=== PATIENT | male | born 1965 | race Caucasian/White ===

== ENCOUNTER 2022-02-13 06:44 | Observation (INO) | payer BC, OTHER ==
[2022-02-13] MEDS ORDERED: ASPIRIN 81 MG PO STA (07:15)
[2022-02-13] MEDS ORDERED: HYDROmorphone 1 MG/ML 1 ML SYRINGE IVP STA ×2 (07:16→08:53)
--- NOTE | 2022-02-13 07:22 | ED ---
General Adult HPI - General Chief complaint: Extremity Injury, Lower Stated complaint: Wound,Chest Pain Time Seen by Provider: 02/13/22 06:55 Source: patient, family, RN notes reviewed Mode of arrival: ambulatory Limitations: no limitations - History of Present Illness Initial comments: Patient is a pleasant 56-year-old male presenting to the emergency department with concerns for right foot pain. Patient states he has developed a wound over the past few months. Patient is currently on antibiotics. Patient states pain is reliable list. Patient is having difficult time getting comfortable and has slept only around an hour last night. Patient has vague complaints around chest heaviness and maybe some shortness of breath. Patient has difficulty describing her providing much more information on this. Patient has seen previous wound doctor's and has been told that this is a vascular wound. Patient has been to [facility] and other places. - Related Data Home Medications Medication Instructions Recorded Confirmed Dextroamphetamine/Amphetamine 20 mg PO BID 03/28/15 04/14/15 [Adderall] Gabapentin [Neurontin] 300 mg PO BID 03/28/15 04/09/15 Ibuprofen [Motrin] 200 - 800 mg PO DAILY PRN 03/28/15 04/09/15 Zolpidem [Ambien] 5 mg PO HS PRN 03/28/15 04/09/15 HYDROcodone/APAP 5-325MG [[place] 5] 1 each PO Q6HR PRN 04/09/15 04/14/15 Allergies Allergy/AdvReac Type Severity Reaction Status Date / Time No Known Allergies Allergy Verified 02/13/22 06:50 Review of Systems ROS Statement: Those systems with pertinent positive or pertinent negative responses have been documented in the HPI. ROS Other: All systems not noted in ROS Statement are negative. Constitutional: Denies: fever Eyes: Denies: eye pain ENT: Denies: ear pain Respiratory: Reports: as per HPI, dyspnea Cardiovascular: Reports: as per HPI, chest pain Endocrine: Denies: fatigue Gastrointestinal: Denies: abdominal pain Genitourinary: Denies: dysuria Musculoskeletal: Denies: back pain Skin: Reports: as per HPI Neurological: Denies: weakness Past Medical History Additional Past Medical History / Comment(s): OPEN WOUND RT [facility] RT LEG History of Any Multi-Drug Resistant Organisms: None Reported Past Surgical History: Orthopedic Surgery Additional Past Surgical History / Comment(s): ORIF WRIST-LATER REMOVED,VEIN STRIPPING RT LEG Past Anesthesia/Blood Transfusion Reactions: No Reported Reaction Past Psychological History: No Psychological Hx Reported Smoking Status: Vaper Past Alcohol Use History: Occasional Past Drug Use History: Marijuana - Past Family History Mother Family Medical History: Cancer Father Family Medical History: No Reported History General Exam Limitations: no limitations General appearance: alert, anxious Head exam: Present: normocephalic Eye exam: Present: normal appearance Neck exam: Present: normal inspection Respiratory exam: Present: normal lung sounds bilaterally. Absent: chest wall tenderness Cardiovascular Exam: Present: regular rate, normal rhythm Expanded Peripheral pulses: 2+: Radial (R), Radial (L), Dorsalis Pedis (R), Dorsalis Pedis (L) GI/Abdominal exam: Present: soft. Absent: tenderness Extremities exam: Present: normal inspection Neurological exam: Present: alert Psychiatric exam: Present: anxious Skin exam: Present: other (Stage II wound approximately 3 x 1.5 cm right lateral proximal foot.) Course Vital Signs 02/13/22 02/13/22 06:47 07:54 Temperature 97.5 F L Pulse Rate 80 78 Respiratory 22 16 Rate Blood Pressure 170/127 149/82 O2 Sat by Pulse 98 99 Oximetry EKG Findings - EKG Comments: EKG Findings:: Sinus rhythm with rate of 83. AK 167. QRS 91. QT 345. QTC 34. Left axis. Normal QRS. No acute ST change. Medical Decision Making - Medical Decision Making Patient reevaluated. Patient and family updated. Case discussed with Dr. Sin, who will admit covering Dr. Sabillon. He would like to see the wound himself prior to considering further consults. - Lab Data Result diagrams: 02/13/22 07:25 02/13/22 07:25 Lab Results 02/13/22 02/13/22 02/13/22 Range/Units 07:25 07:25 07:25 WBC 7.3 (3.8-10.6) k/uL RBC 4.53 (4.30-5.90) m/uL Hgb 13.0 (13.0-17.5) gm/dL Hct 40.1 (39.0-53.0) % MCV 88.5 (80.0-100.0) fL MCH 28.8 (25.0-35.0) pg MCHC 32.6 (31.0-37.0) g/dL RDW 11.9 (11.5-15.5) % Plt Count 291 (150-450) k/uL MPV 8.7 Neutrophils % 72 % Lymphocytes % 18 % Monocytes % 5 % Eosinophils % 3 % Basophils % 1 % Neutrophils # 5.3 (1.3-7.7) k/uL Lymphocytes # 1.3 (1.0-4.8) k/uL Monocytes # 0.4 (0-1.0) k/uL Eosinophils # 0.2 (0-0.7) k/uL Basophils # 0.0 (0-0.2) k/uL PT 9.7 (9.0-12.0) sec INR 0.9 (<1.2) APTT 25.3 (22.0-30.0) sec D-Dimer 0.19 (<0.60) mg/L FEU Sodium 136 L (137-145) mmol/L Potassium 4.8 (3.5-5.1) mmol/L Chloride 103 (98-107) mmol/L Carbon Dioxide 22 (22-30) mmol/L Anion Gap 11 mmol/L BUN 23 H (9-20) mg/dL Creatinine 0.95 (0.66-1.25) mg/dL Est GFR (CKD-EPI)AfAm >90 (>60 ml/min/1.73 sqM) Est GFR (CKD-EPI)NonAf 90 (>60 ml/min/1.73 sqM) Glucose 98 (74-99) mg/dL Calcium 9.3 (8.4-10.2) mg/dL Magnesium 1.8 (1.6-2.3) mg/dL Total Bilirubin 0.3 (0.2-1.3) mg/dL AST 24 (17-59) U/L ALT 24 (4-49) U/L Alkaline Phosphatase 66 (38-126) U/L Troponin I (0.000-0.034) ng/mL Total Protein 7.0 (6.3-8.2) g/dL Albumin 4.4 (3.5-5.0) g/dL 02/13/22 Range/Units 07:25 WBC (3.8-10.6) k/uL RBC (4.30-5.90) m/uL Hgb (13.0-17.5) gm/dL Hct (39.0-53.0) % MCV (80.0-100.0) fL MCH (25.0-35.0) pg MCHC (31.0-37.0) g/dL RDW (11.5-15.5) % Plt Count (150-450) k/uL MPV Neutrophils % % Lymphocytes % % Monocytes % % Eosinophils % % Basophils % % Neutrophils # (1.3-7.7) k/uL Lymphocytes # (1.0-4.8) k/uL Monocytes # (0-1.0) k/uL Eosinophils # (0-0.7) k/uL Basophils # (0-0.2) k/uL PT (9.0-12.0) sec INR (<1.2) APTT (22.0-30.0) sec D-Dimer (<0.60) mg/L FEU Sodium (137-145) mmol/L Potassium (3.5-5.1) mmol/L Chloride (98-107) mmol/L Carbon Dioxide (22-30) mmol/L Anion Gap mmol/L BUN (9-20) mg/dL Creatinine (0.66-1.25) mg/dL Est GFR (CKD-EPI)AfAm (>60 ml/min/1.73 sqM) Est GFR (CKD-EPI)NonAf (>60 ml/min/1.73 sqM) Glucose (74-99) mg/dL Calcium (8.4-10.2) mg/dL Magnesium (1.6-2.3) mg/dL Total Bilirubin (0.2-1.3) mg/dL AST (17-59) U/L ALT (4-49) U/L Alkaline Phosphatase (38-126) U/L Troponin I <0.012 (0.000-0.034) ng/mL Total Protein (6.3-8.2) g/dL Albumin (3.5-5.0) g/dL - Radiology Data Radiology results: image reviewed (Chest x-ray shows no acute process. Right foot x-ray shows no evidence of osteomyelitis) Disposition Clinical Impression: Chest pain, Foot ulcer Disposition: ADMITTED IP TO THIS HOSP Is patient prescribed a controlled substance at d/c from ED?: No Referrals: Sheila Crawley DO [Primary Care Provider] - 1-2 days Time of Disposition: 08:57
[2022-02-13] MEDS ORDERED: NITROGLYCERIN OINT 1 INCH/GM PACKET TOPICAL STA (07:24)
[2022-02-13 08:03] LABS: INR 0.9 (<1.2); Partial Thromboplastin Time 25.3 sec (22.0-30.0); Prothrombin Time 9.7 sec (9.0-12.0)
--- NOTE | 2022-02-13 08:09 | XR ---
EXAMINATION TYPE: XR chest 2V DATE OF EXAM: 02/13/2022 7:53 AM COMPARISON: None TECHNIQUE: XR chest 2V Frontal and lateral views of the chest. CLINICAL INDICATION:Male, 56 years old with history of Chest Pain; FINDINGS: Lungs/Pleura: There is no evidence of pleural effusion, focal consolidation, or pneumothorax. Pulmonary vascularity: Unremarkable. Heart/mediastinum: Cardiomediastinal silhouette is enlarged and stable. Musculoskeletal: No acute osseous pathology. IMPRESSION: No acute cardiopulmonary disease/process.
--- NOTE | 2022-02-13 08:09 | XR ---
EXAMINATION TYPE: XR foot complete RT DATE OF EXAM: 02/13/2022 7:53 AM INDICATION: Patient age:Male; 56 years old; Reason for study: wound; [facility]. COMPARISON: None TECHNIQUE: The right foot was examined in the AP, oblique, and lateral projections. FINDINGS: No evidence of any acute osseous pathology. No evidence of soft tissue swelling. Joints are preserve d. No evidence of osseous erosion to suggest osteomyelitis. IMPRESSION: 1. No evidence of acute fracture. 2. No evidence for osteomyelitis.
[2022-02-13 08:12] LABS: ALT 24 U/L (4-49); AST 24 U/L (17-59); African American GFR (CKD) >90 (>60 ml/min/1.73 sqM); Albumin 4.4 g/dL (3.5-5.0); Alkaline Phosphatase 66 U/L (38-126); Anion Gap 11 mmol/L; Blood Urea Nitrogen 23 mg/dL (9-20); Calcium 9.3 mg/dL (8.4-10.2); Carbon Dioxide 22 mmol/L (22-30); Chloride 103 mmol/L (98-107); Glucose 98 mg/dL (74-99); Magnesium 1.8 mg/dL (1.6-2.3); Non-African American GFR(CKD) 90 (>60 ml/min/1.73 sqM); Potassium 4.8 mmol/L (3.5-5.1); Sodium 136 mmol/L (137-145); Total Bilirubin 0.3 mg/dL (0.2-1.3)
[2022-02-13 08:27] LABS: Basophils % (A) 1 %; Eosinophils # (A) 0.2 k/uL (0-0.7); Eosinophils % (A) 3 %; HCT 40.1 % (39.0-53.0); Lymphocytes # (A) 1.3 k/uL (1.0-4.8); Lymphocytes % (A) 18 %; MCH 28.8 pg (25.0-35.0); MCHC 32.6 g/dL (31.0-37.0); MCV 88.5 fL (80.0-100.0); Mean Platelet Volume 8.7; Monocytes # (A) 0.4 k/uL (0-1.0); Monocytes % (A) 5 %; Neutrophils # (A) 5.3 k/uL (1.3-7.7); Neutrophils % (A) 72 %; Platelet Count 291 k/uL (150-450); RBC 4.53 m/uL (4.30-5.90); RDW 11.9 % (11.5-15.5); WBC 7.3 k/uL (3.8-10.6)
[2022-02-13] MEDS ORDERED: NITROGLYCERIN SL TABS 0.4 MG TAB SUBLINGUAL PRN (08:57)
[2022-02-13] MEDS ORDERED: KETOROLAC 15 MG/ML 1 ML VIAL IVP PRN (10:23)
[2022-02-13] MEDS ORDERED: HYDROcodone/APAP 10-325MG 1 EACH TAB PO PRN (10:25)
--- NOTE | 2022-02-13 10:58 | P.HPIM ---
History of Present Illness 56-year-old male came to emergency department with right foot pain patient has a chronic ulcer which is being taken care of as an outpatient by vascular surgery patient has a stage III ulcer which she doesn't appear to be infected patient the head wound cultures done couple days ago and patient was started on antibiotic. Patient doesn't know the name of the antibiotic. When patient came to the ER he was also complaining of chest pressure-like sensation because of which patient was admitted patient chest pressure is heaviness mild to moderate pain with probably some shortness of breath no diaphoresis no lightheadedness EKG did not show any significant abnormality troponins are negative chest pain is nonpleuritic not associated with food and patient's d-dimer is 0.19 which is normal. REVIEW OF SYSTEMS: CONSTITUTIONAL: No fever, no malaise, no fatigue. HEENT: No recent visual problems or hearing problems. Denied any sore throat. CARDIOVASCULAR: No orthopnea, PND, no palpitations, no syncope. PULMONARY: no cough, no hemoptysis. GASTROINTESTINAL: No diarrhea, no nausea, no vomiting, no abdominal pain. NEUROLOGICAL: No headaches, no weakness, no numbness. HEMATOLOGICAL: Denies any bleeding or petechiae. GENITOURINARY: Denies any burning micturition, frequency, or urgency. MUSCULOSKELETAL/RHEUMATOLOGICAL: Denies any joint pain, swelling, or any muscle pain. ENDOCRINE: Denies any polyuria or polydipsia. The rest of the 14-point review of systems is negative. PHYSICAL EXAMINATION: GENERAL: The patient is alert and oriented x3, not in any acute distress. Well developed, well nourished. HEENT: Pupils are round and equally reacting to light. EOMI. No scleral icterus. No conjunctival pallor. Normocephalic, atraumatic. No pharyngeal erythema. No thyromegaly. CARDIOVASCULAR: S1 and S2 present. No murmurs, rubs, or gallops. PULMONARY: Chest is clear to auscultation, no wheezing or crackles. ABDOMEN: Soft, nontender, nondistended, normoactive bowel sounds. No palpable organomegaly. MUSCULOSKELETAL: No joint swelling or deformity. EXTREMITIES: No cyanosis, clubbing, or pedal edema. NEUROLOGICAL: Gross neurological examination did not reveal any focal deficits. SKIN: A stage III ulcer on the right lateral right ankle. Healthy granulation tissue doesn't appear to be infected at this time there is although there is some redness around it. Assessment and plan -Chest pressure like sensation: We will rule out acute coronary syndromes patient will be evaluated by cardiology. Cardiology patient probably can be discharged -Pain in the right ankle secondary to ulcer which the doesn't appear to be infected patient is already taking antibiotics which will be resumed and patient will be started on Toradol and patient can increase the dose of [place] he's taking at home. Patient will follow with wound care as an outpatient. -Peripheral neuropathy -Peripheral vascular disease: Patient quit smoking in 2009 DVT prophylaxis: Early ambulation Past Medical History Additional Past Medical History / Comment(s): OPEN WOUND RT [facility] RT LEG History of Any Multi-Drug Resistant Organisms: None Reported Past Surgical History: Orthopedic Surgery Additional Past Surgical History / Comment(s): ORIF WRIST-LATER REMOVED,VEIN STRIPPING RT LEG Past Anesthesia/Blood Transfusion Reactions: No Reported Reaction Past Psychological History: No Psychological Hx Reported Smoking Status: Vaper Past Alcohol Use History: Occasional Past Drug Use History: Marijuana - Past Family History Mother Family Medical History: Cancer Father Family Medical History: No Reported History Medications and Allergies Home Medications Medication Instructions Recorded Confirmed Type Dextroamphetamine/Amphetamine 20 mg PO BID 03/28/15 04/14/15 History [Adderall] Gabapentin [Neurontin] 300 mg PO BID 03/28/15 04/09/15 History Ibuprofen [Motrin] 200 - 800 mg PO DAILY PRN 03/28/15 04/09/15 History Zolpidem [Ambien] 5 mg PO HS PRN 03/28/15 04/09/15 History HYDROcodone/APAP 5-325MG [[place] 5] 1 each PO Q6HR PRN 04/09/15 04/14/15 History Allergies Allergy/AdvReac Type Severity Reaction Status Date / Time No Known Allergies Allergy Verified 02/13/22 06:50 Physical Exam Vitals: Vital Signs Temp Pulse Resp BP Pulse Ox 02/13/22 07:54 78 16 149/82 99 02/13/22 06:47 97.5 F L 80 22 170/127 98 Intake and Output 02/12/22 02/13/22 02/13/22 22:59 06:59 14:59 Other: Weight 104.326 kg Results CBC & Chem 7: 02/13/22 07:25 02/13/22 07:25 Labs: Abnormal Lab Results - Last 24 Hours (Table) 02/13/22 Range/Units 07:25 Sodium 136 L (137-145) mmol/L BUN 23 H (9-20) mg/dL
--- NOTE | 2022-02-13 10:59 | P.DS ---
Providers Date of admission: 02/13/22 08:57 Attending physician: Kristina Sin Consults: 02/13/22 08:57 Consult Physician Urgent Consulting Provider: Nas Hernandez Consult Reason/Comments: cp Do you want consulting provider notified?: Yes Primary care physician: Sheila Crawley [facility] Course: Please refer to my history of present illness for further details Plan - Discharge Summary New Discharge Prescriptions: Continue Ibuprofen [Motrin] 200 - 800 mg PO DAILY PRN PRN Reason: Pain Zolpidem [Ambien] 5 mg PO HS PRN PRN Reason: SLEEP Gabapentin [Neurontin] 300 mg PO BID Dextroamphetamine/Amphetamine [Adderall] 20 mg PO BID HYDROcodone/APAP 5-325MG [[place] 5-325] 1 each PO Q6HR PRN PRN Reason: Pain Discharge Medication List Dextroamphetamine/Amphetamine [Adderall] 20 mg PO BID 03/28/15 [History] Gabapentin [Neurontin] 300 mg PO BID 03/28/15 [History] Ibuprofen [Motrin] 200 - 800 mg PO DAILY PRN 03/28/15 [History] Zolpidem [Ambien] 5 mg PO HS PRN 03/28/15 [History] HYDROcodone/APAP 5-325MG [[place] 5-325] 1 each PO Q6HR PRN 04/09/15 [History] Follow up Appointment(s)/Referral(s): Sheila Crawley DO [Primary Care Provider] - 1-2 days Discharge Disposition: HOME SELF-CARE
[2022-02-13] MEDS ORDERED: NITROGLYCERIN OINT 1 INCH/GM PACKET TOPICAL SCH (12:00)
--- NOTE | 2022-02-13 13:17 | P.CRDCN ---
History of Present Illness Consult date: 02/13/22 Requesting physician: Kristina Sin Reason for Consult (text): chest pain Chief complaint: right foot ulcer pain History of present illness: This is a pleasant 56-year-old gentleman with a past history of chronic venous insufficiency, chronic venous stasis and venous stasis ulcers. Previously seen at [facility], and [facility]. History of prior vein stripping in his 20s. History of hypertension but antihypertensives were discontinued and patient is currently not on medications for this. Blood pressure he says is fairly well controlled except for when he has significant pain. History of smoking, quit 4 years ago but currently uses a vape pen. No history of cardiac workup in the past. Presented mainly for complaints of pain involving his right foot ulcer following at the wound Center at [facility] on [address] He had apparently not been sleeping for over 24 hours due to the pain was having significant pain and felt that his breathing was quite heavy and decided to come to the emergency department for further evaluation and pain treatment. His pain continues but is better controlled. Cardiac enzymes have been negative thus far. EKG shows sinus rhythm with no ischemic changes. Chest x-ray on admission showed no acute cardiopulmonary disease/process. X-ray of the foot showed no evidence of acute fracture, no evidence of osteo-myelitis. 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 He denies any shortness of breath typically. Has no chest discomfort. Occasional edema in the lower extremities at the end of the day. Denies any palpitations, dizziness or lightheadedness. Denies any orthopnea or PND. Past Medical History Additional Past Medical History / Comment(s): OPEN WOUND RT [facility] IN [facility] RT LEG History of Any Multi-Drug Resistant Organisms: None Reported Past Surgical History: Orthopedic Surgery Additional Past Surgical History / Comment(s): ORIF WRIST-LATER REMOVED,VEIN STRIPPING RT LEG Past Anesthesia/Blood Transfusion Reactions: No Reported Reaction Past Psychological History: No Psychological Hx Reported Smoking Status: Vaper Past Alcohol Use History: Occasional Past Drug Use History: Marijuana - Past Family History Mother Family Medical History: Cancer Father Family Medical History: No Reported History Medications and Allergies Home Medications Medication Instructions Recorded Confirmed Type Desoximetasone [Desoximetasone 1 applic TOPICAL BID 02/13/22 02/13/22 History 0.25%] Lidocaine-Prilocaine Cream [Emla 1 applic TOPICAL BID PRN 02/13/22 02/13/22 History Cream 2.5%/2.5%] Pentoxifylline [TRENtal] 400 mg PO TID-W/MEALS 02/13/22 02/13/22 History Sulfamethox-Tmp 800-160Mg [Bactrim 1 tab PO Q12H 02/13/22 02/13/22 History DS 800-160 mg] Allergies Allergy/AdvReac Type Severity Reaction Status Date / Time No Known Allergies Allergy Verified 02/13/22 11:43 Physical Exam Vitals: Vital Signs Temp Pulse Resp BP Pulse Ox 02/13/22 07:54 78 16 149/82 99 02/13/22 06:47 97.5 F L 80 22 170/127 98 Intake and Output 02/12/22 02/13/22 02/13/22 22:59 06:59 14:59 Other: Weight 104.326 kg PHYSICAL EXAMINATION: This is a 56-year-old male in no apparent distress at the time of my examination. HEENT: Head is atraumatic, normocephalic. Pupils are equal, round. Sclerae anicteric. Conjunctivae are clear. Mucous membranes of the mouth are moist. Neck is supple. There is no elevated jugular venous pressure. No carotid bruit is heard. CHEST EXAMINATION: Clear to auscultation bilaterally. No wheezes rales or rhonchi. Respirations even and nonlabored. HEART EXAMINATION: Heart regular, positive S1 and S2. No S3. No S4. No cl icks, rubs or murmurs. ABDOMEN: Soft, nontender. Bowel sounds are heard. No organomegaly noted. EXTREMITIES: 2+ peripheral pulses with no evidence of peripheral edema and no calf tenderness noted. Evidence of chronic venous stasis and venous stasis dermatitis involving bilateral feet. Right lateral foot/ankle with dressing dry and intact. NEUROLOGIC EXAMINATION: Patient is awake, alert and oriented x3. Results 02/13/22 07:25 02/13/22 07:25 Cardiac Enzymes 02/13/22 02/13/22 02/13/22 Range/Units 07:25 07:25 09:44 AST 24 (17-59) U/L Troponin I <0.012 <0.012 (0.000-0.034) ng/mL Coagulation 02/13/22 Range/Units 07:25 PT 9.7 (9.0-12.0) sec APTT 25.3 (22.0-30.0) sec CBC 02/13/22 Range/Units 07:25 WBC 7.3 (3.8-10.6) k/uL RBC 4.53 (4.30-5.90) m/uL Hgb 13.0 (13.0-17.5) gm/dL Hct 40.1 (39.0-53.0) % Plt Count 291 (150-450) k/uL Comprehensive Metabolic Panel 02/13/22 Range/Units 07:25 Sodium 136 L (137-145) mmol/L Potassium 4.8 (3.5-5.1) mmol/L Chloride 103 (98-107) mmol/L Carbon Dioxide 22 (22-30) mmol/L BUN 23 H (9-20) mg/dL Creatinine 0.95 (0.66-1.25) mg/dL Glucose 98 (74-99) mg/dL Calcium 9.3 (8.4-10.2) mg/dL AST 24 (17-59) U/L ALT 24 (4-49) U/L Alkaline Phosphatase 66 (38-126) U/L Total Protein 7.0 (6.3-8.2) g/dL Albumin 4.4 (3.5-5.0) g/dL Current Medications Generic Name Dose Route Start Last Admin Trade Name Freq PRN Reason Stop Dose Admin Hydrocodone Bitart/Acetaminophen 1 each 02/13/22 10:25 02/13/22 11:08 Hydrocodone/Apap 10-325mg 1 Each Tab PO 1 each Q6HR PRN Administration Moderate Pain WHEN PO Aspirin 81 mg 02/14/22 09:00 Aspirin 325 Mg Tab PO DAILY CATIE Ketorolac Tromethamine 15 mg 02/13/22 10:23 02/13/22 11:07 Ketorolac 15 Mg/Ml 1 Ml Vial IVP 02/18/22 10:24 15 mg Q6HR PRN Administration Moderate Pain WHEN IV Nitroglycerin 0.4 mg 02/13/22 08:57 Nitroglycerin Sl Tabs 0.4 Mg Tab SUBLINGUAL Q5M PRN Chest Pain Intake and Output 02/12/22 02/13/22 02/13/22 22:59 06:59 14:59 Other: Weight 104.326 kg 02/13/22 07:25 02/13/22 07:25 Assessment and Plan Assessment: #1 right venous foot ulcer #2 chronic venous stasis #3 elevated blood pressure in the setting of significant pain #4 symptoms of chest heaviness and shortness of breath, acute coronary event has been ruled out, likely related to underlying sleep deprivation and pain however patient has not had any cardiac workup in the past Plan: From cardiology's perspective will obtain a 2-D echo with Doppler study. Continue to trend her troponins. If the troponin third troponin is negative and there are no significant abnormalities noted on the echocardiogram patient may be discharged home. He'll follow-up as an outpatient for further evaluation. LASER/ELECTRO OPT[employer] TECHNICIAN note has been reviewed, I agree with a documented findings and plan of care. Patient was seen and examined.
[2022-02-13 13:29] VITALS: BP 138/70; PULSE 75; RESP 20; TEMP 97.9
[2022-02-13] MEDS ORDERED: LIDOCAINE-PRILOCAINE 2.5-2.5% CREAM 5 GM TUBE TOPICAL PRN (14:47)
--- NOTE | 2022-02-13 15:27 | CA ---
Transthoracic Echo Report Name: Braxton Wolff Age: 56 Gender: M : 1965 Exam Date: 02/13/2022 10:44 Exam Location: [place] [facility] Ht (in): 70 Wt (lb): 230 Ordering Physician: My Workman Attending/Referring Phys: [id number], Jacinta Manager [place] Kristine Silva, RD Procedure CPT: Indications: Chest Pain Cardiac Hx: Technical Quality: Fair Contrast 1: Total Dose (mL): Contrast 2: Total Dose (mL): MEASUREMENTS (Male / Female) Normal Values 2D ECHO LV Diastolic Diameter PLAX 5.4 cm 4.2 - 5.9 / 3.9 - 5.3 cm LV Systolic Diameter PLAX 3.4 cm IVS Diastolic Thickness 1.4 cm 0.6 - 1.0 / 0.6 - 0.9 cm LVPW Diastolic Thickness 1.4 cm 0.6 - 1.0 / 0.6 - 0.9 cm LV Relative Wall Thickness 0.5 RV Internal Dim ED PLAX 3.2 cm LA Systolic Diameter LX 3.5 cm 3.0 - 4.0 / 2.7 - 3.8 cm LA Volume 83.3 cm??? 18 - 58 / 22 - 52 cm??? M-MODE Aortic Root Diameter MM 5.0 cm MV E Point Septal Separation 0.9 cm AV Cusp Separation MM 3.0 cm DOPPLER AV Peak Velocity 145.4 cm/s AV Peak Gradient 8.5 mmHg AI Peak Velocity 433.3 cm/s AI Peak Gradient 75.1 mmHg AI Pressure Half Time 723.9 ms MV Area PHT 3.1 cm??? Mitral E Point Velocity 90.3 cm/s Mitral A Point Velocity 116.9 cm/s Mitral E to A Ratio 0.8 MV Deceleration Time 244.2 ms MV E' Velocity 4.8 cm/s Mitral E to MV E' Ratio 19.0 FINDINGS Left Ventricle Left ventricular ejection fraction is estimated at 55-60 %. Left ventricular cavity size normal. Moderate concentric left ventricular hypertrophy. Right Ventricle Normal right ventricular size and function. Unable to estimate the right ventricular systolic pressure. Right Atrium Normal right atrial size. Left Atrium Severely increased left atrial volume. Mildly increased left atrial area. No evidence for an atrial septal defect. Mitral Valve Mitral annular calcification.mild mitral regurgitation. Aortic Valve Mild aortic regurgitation. No aortic stenosis.bicuspid aortic valve. Tricuspid Valve Structurally normal tricuspid valve.trace to mild tricuspid regurgitation. Pulmonic Valve Trace to mild pulmonic regurgitation. Pericardium Normal pericardium. No pericardial effusion. Aorta Severe aortic dilatation at the level of the sinuses of valsalva 50 mm CONCLUSIONS 1. Normal left ventricle size and systolic function was moderate LVH 2. Mild mitral regurgitation 3. Bicuspid aortic valve was mild aortic regurgitation 4. Dilated ascending aorta Previewed by: Dr. Sharad Bowser MD (Electronically Signed) Final Date: 13 February 2022 15:26
[2022-02-13] MEDS ORDERED: SULFAMETHOX-TMP 800-160MG 1 EACH TAB PO SCH (16:00)
[2022-02-13] MEDS ORDERED: BETAMETHASONE DIPROPIONATE 0.05% CREAM 15 GM TUBE TOPICAL SCH (21:00)
[2022-02-14] MEDS ORDERED: ASPIRIN 325 MG TAB PO SCH (09:00)
[2022-02-14] MEDS ORDERED: ASPIRIN 81 MG PO SCH (09:00)
== END 2022-02-13 16:55 | disposition home or self-care (01) ==
LOC: EC 06:44 → 6NMEDSUR 08:57
PROVIDERS: ADMIT Internal Medicine; ATTEND Internal Medicine
DX: R07.89 Other chest pain (principal); L97.318 Non-pressure chronic ulcer of right ankle with other specified severity; I73.9 Peripheral vascular disease, unspecified; F12.90 Cannabis use, unspecified, uncomplicated; G62.9 Polyneuropathy, unspecified; I87.8 Other specified disorders of veins; I11.9 Hypertensive heart disease without heart failure; I08.3 Combined rheumatic disorders of mitral, aortic and tricuspid valves; F17.290 Nicotine dependence, other tobacco product, uncomplicated; Q23.1 Congenital insufficiency of aortic valve; Z80.9 Family history of malignant neoplasm, unspecified; Z79.899 Other long term (current) drug therapy
CPT/HCPCS: 96375; 96376; 96374; 99285; 36415; 93306; 85379; 83880; 80053; 83735; 84484; 85025; 85610; 85730; 87040; 73630; 71046; G0378; J1170; J1885